=== PATIENT | male | born 1960 | race Caucasian/White ===

== ENCOUNTER 2020-05-08 11:37 | Inpatient (IN) | payer BC ==
[2020-05-08] MEDS ORDERED: ASPIRIN 81 MG PO STA (11:55)
[2020-05-08] MEDS ORDERED: LIDOCAINE 1% INJ 10MG/ML (20 ML MDV) ONE (12:09)
[2020-05-08] MEDS ORDERED: HEPARIN SODIUM,PORCINE 5,000 UNIT/ML 1 ML VIAL IV ONE (12:09)
[2020-05-08] MEDS ORDERED: HEPARIN SODIUM,PORCINE 5,000 UNIT/ML 1 ML VIAL IV PRN (12:09)
--- NOTE | 2020-05-08 12:09 | XR ---
EXAMINATION TYPE: XR chest 1V portable DATE OF EXAM: 05/08/2020 COMPARISON: NONE HISTORY: Pain TECHNIQUE: Single frontal view of the chest is obtained. FINDINGS: There is no focal air space opacity, pleural effusion, or pneumothorax seen. The cardiac silhouette size is within normal limits. The osseous structures are intact. Arthropathy of the AC j oints. No overt failure. Heart size normal. IMPRESSION: No acute process.
[2020-05-08] MEDS ORDERED: NALOXONE 0.4 MG/ML 1 ML VIAL IV PRN (12:10)
--- NOTE | 2020-05-08 12:10 | ED ---
General Adult HPI - General Chief complaint: Chest Pain Stated complaint: abn ekg Time Seen by Provider: 05/08/20 11:54 Source: patient Mode of arrival: ambulatory Limitations: no limitations - History of Present Illness Initial comments: Dictation was produced using [employer] ([email or web address]) dictation software. please excuse any grammatical, word or spelling errors. This patient was cared for during a federal and state declared state of emergency secondary to Covid 19 Chief Complaint: 59-year-old male presents with chest pain History of Present Illness: 59-year-old male has been presenting with waxing and waning chest symptoms for the last 4 days. Patient states that he's been expressing pressure-like cessation to substernal chest with radiation patient down both of his upper extremities. Patient denies any diaphoresis however does feel nauseated clammy with the onset of the symptoms. Denies any numb single paresthesias to the arms or legs. States that the pain does not radiate to his back. He denies any strokelike symptoms. He denies that the pain feels a sharp pain that radiates to his back. Patient has past nuchal history of tobacco abuse, hypertension high cholesterol. He has no history of diabetes. He does have family history of cardiac disease. The ROS documented in this emergency department record has been reviewed and confirmed by me. Those systems with pertinent positive or negative responses have been documented in the HPI. All other systems are other negative and/or noncontributory. PHYSICAL EXAM: General Impression: Alert and oriented x3, not in acute distress HEENT: Normocephalic atraumatic, extra-ocular movements intact, pupils equal and reactive to light bilaterally, mucous membranes moist. Cardiovascular: Heart regular rate and rhythm Chest: Able to complete full sentences, no retractions, no tachypnea Abdomen: abdomen soft, non-tender, non-distended, no organomegaly Musculoskeletal: Pulses present and equal in all extremities, no peripheral edema Motor: no focal deficits noted Neurological: CN II-XII grossly intact, no focal motor or sensory deficits noted Skin: Intact with no visualized rashes Psych: Normal affect and mood ED course: 59-year-old male presents with chest pain concerning for acute coronary syndrome. As upon arrival shows heart rate of 112, rest of vital signs within acceptable limits. EKG shows inferior lateral ST segment elevation myocardial infarction with reciprocal changes in the anterior precordial leads. Code STEMI was paged. Case is discussed with Dr. Fernandes. Patient started on heparin and given aspirin. Patient will be disposition to the cardiac catheterization lab for emergent cardiac cath. EKG interpretation: Ventricular rate 91, normal sinus rhythm,. 150, QRS 76, QTC 457. ST segment elevation in inferior and lateral leads with Q waves and ST depressions in V1 and V2.. No ME prolongation, no QTC prolongation. EKG concerning for ST segment elevation IA. - Related Data Allergies Allergy/AdvReac Type Severity Reaction Status Date / Time No Known Allergies Allergy Verified 05/08/20 11:46 Review of Systems ROS Statement: Those systems with pertinent positive or pertinent negative responses have been documented in the HPI. ROS Other: All systems not noted in ROS Statement are negative. Past Medical History Past Medical History: Hyperlipidemia, Hypertension History of Any Multi-Drug Resistant Organisms: None Reported Past Surgical History: Orthopedic Surgery Additional Past Surgical History / Comment(s): sinus surgery Past Psychological History: No Psychological Hx Reported Smoking Status: Current every day smoker Past Alcohol Use History: Occasional Past Drug Use History: Marijuana General Exam Limitations: no limitations Course Vital Signs 05/08/20 05/08/20 05/08/20 11:43 12:02 12:08 Temperature 98.1 F Pulse Rate 90 112 H 110 H Respiratory 18 18 18 Rate Blood Pressure 193/75 186/124 167/111 O2 Sat by Pulse 97 96 96 Oximetry Disposition Clinical Impression: STEMI (ST elevation myocardial infarction) Disposition: ADMITTED IP TO THIS HOSP Condition: Critical Referrals: Aissatou Malagon DO [Primary Care Provider] - 1-2 days Decision Time: 12:10
[2020-05-08] MEDS ORDERED: VERAPAMIL 2.5 MG/ML 2 ML AMP ONE (12:14)
[2020-05-08] MEDS: HEPARIN SOD,PORK IN 0.45% NACL 25,000 UNIT in 0.45% NACL 1 250ML.BAG IV SCH (12:15)
[2020-05-08] MEDS ORDERED: IV FLUID CONTINUATION 1,000 ML IV ONE (12:20)
[2020-05-08 12:21] LABS: Basophils % (A) 0 %; Eosinophils # (A) 0.1 k/uL (0-0.7); Eosinophils % (A) 1 %; HGB 18.9 gm/dL (13.0-17.5); Lymphocytes # (A) 2.6 k/uL (1.0-4.8); Lymphocytes % (A) 22 %; MCH 32.4 pg (25.0-35.0); MCHC 32.9 g/dL (31.0-37.0); MCV 98.4 fL (80.0-100.0); Mean Platelet Volume 6.6; Monocytes # (A) 0.8 k/uL (0-1.0); Monocytes % (A) 7 %; Neutrophils # (A) 7.9 k/uL (1.3-7.7); Neutrophils % (A) 68 %; Platelet Count 222 k/uL (150-450); RBC 5.84 m/uL (4.30-5.90); RDW 13.2 % (11.5-15.5); WBC 11.6 k/uL (3.8-10.6)
[2020-05-08] MEDS ORDERED: MIDAZOLAM 2 MG/2 ML VIAL IV ONE (12:23)
[2020-05-08] MEDS ORDERED: fentaNYL (PF) 50 MCG/ML 2 ML AMP IV ONE (12:25)
[2020-05-08 12:28] LABS: ALT 41 U/L (4-49); AST 196 U/L (17-59); African American GFR (CKD) >90 (>60 ml/min/1.73 sqM); Alkaline Phosphatase 101 U/L (38-126); Anion Gap 8 mmol/L; Blood Urea Nitrogen 9 mg/dL (9-20); Calcium 11.2 mg/dL (8.4-10.2); Carbon Dioxide 32 mmol/L (22-30); Chloride 96 mmol/L (98-107); Glucose 147 mg/dL (74-99); Magnesium 1.7 mg/dL (1.6-2.3); Non-African American GFR(CKD) >90 (>60 ml/min/1.73 sqM); Potassium 4.2 mmol/L (3.5-5.1); Sodium 136 mmol/L (137-145); Total Bilirubin 1.2 mg/dL (0.2-1.3); Total Protein 8.1 g/dL (6.3-8.2)
[2020-05-08] MEDS ORDERED: fentaNYL (PF) 50 MCG/ML 2 ML AMP ONE (12:29)
[2020-05-08] MEDS ORDERED: LIDOCAINE 1% INJ 10MG/ML (20 ML MDV) SQ ONE (12:30)
[2020-05-08 12:33] LABS: HCT 57.5 % (39.0-53.0)
[2020-05-08] MEDS ORDERED: VERAPAMIL SYRINGE (5 MG/10 ML) INTRAARTER ONE (12:33)
[2020-05-08] MEDS ORDERED: HEPARIN SODIUM 1,000 UN/ML (10ML VL) ONE (12:33)
[2020-05-08] MEDS ORDERED: TICAGRELOR 90 MG TAB PO ONE (12:45)
[2020-05-08] MEDS ORDERED: TICAGRELOR 90 MG TAB ONE (12:45)
[2020-05-08] MEDS ORDERED: IOPAMIDOL-370 125ML BTL INJ ONE (12:48)
[2020-05-08] MEDS: NITROGLYCERIN 1000MCG/10ML SYRINGE INTRAARTER ONE ×2 (12:49→12:58)
[2020-05-08] MEDS ORDERED: IOPAMIDOL-370 100ML BTL INJ ONE (13:04)
[2020-05-08] MEDS ORDERED: MAG HYDROX/AL HYDROX/SIMETH 30 ML CUP PO PRN (13:28)
[2020-05-08] MEDS ORDERED: ZOLPIDEM 5 MG TAB PO PRN (13:28)
[2020-05-08] MEDS ORDERED: ATROPINE SULFATE 0.1 MG/ML 10ML SYRINGE IV PRN (13:28)
[2020-05-08] MEDS ORDERED: RX INFO: IV CONTRAST WAS GIVEN 1 EACH MISC MISCELLANE PRN (13:28)
[2020-05-08] MEDS ORDERED: NITROGLYCERIN SL TABS 0.4 MG TAB SUBLINGUAL PRN (13:28)
--- NOTE | 2020-05-08 13:28 | P.CRDCN ---
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 He admits to ep igastric pain which felt like gas pains and off and on over the last 4 days. He denies any associated nausea, diaphoresis or shortness breath. The pain then became fairly constant over the last night and then his finally made him come to the emergency department. He was found to have Q waves with some ST elevation in the inferior and lateral leads with persistent pain and therefore decision was made to take patient to catheterization lab. His admits that he has been having issues of not feeling well over the past one month and was even scheduled for a stress test next week at his primary care physician's office. DIAGNOSTICS EKG reveals sinus rhythm, normal axis, Q-wave in 2-3 aVF, V5 V6 with 1-1.[address] elevation. Chest xray no acute process Laboratory reviewed, white count 11.6, hemoglobin 18.9, platelets 222, creatinine 0.78, glucose 147, calcium 11.2, AST 196, troponin 21.1 Home medications include simvastatin 20 mg daily and lisinopril 40 mg daily REVIEW OF SYSTEMS At the time of my exam: CONSTITUTIONAL: Denies fever or chills. CARDIOVASCULAR: +chest/ "gas" pain radiating into both arms, no shortness of breath, orthopnea, PND or palpitations. RESPIRATORY: Denies cough. GASTROINTESTINAL: +abdominal pain, no diarrhea, constipation, nausea or vomiting. MUSCULOSKELETAL: Denies myalgias. NEUROLOGIC: Denies numbness, tingling or weakness. ENDOCRINE: Denies fatigue, weight change, polydipsia or polyurina. GENITOURINARY: Denies burning, hematuria or urgency with micturation. HEMATOLOGIC: Denies history of anemia or bleeding. PHYSICAL EXAMINATION Blood pressure 178/100 heart rate 91 afebrile and maintaining oxygen saturation on 2 L nasal cannula CONSTITUTIONAL: Mild distress, appears stated age HEENT: Head is normocephalic. Pupils are equal, round. Sclerae anicteric. Mucous membranes of the mouth are moist. No JVD. No carotid bruit. CHEST EXAMINATION: Lungs are clear to auscultation. No chest wall tenderness is noted on palpation or with deep breathing. HEART EXAMINATION: Regular rate and rhythm. S1, S2 heard. No murmurs, gallops or rub. ABDOMEN: Soft, nontender. Positive bowel sounds. EXTREMITIES: 2+ peripheral pulses, no lower extremity edema and no calf tenderness. NEUROLOGIC EXAMINATION: Patient is awake, alert and oriented x3. ASSESSMENT 1. Inferior lateral STEMI. Patient has been having pain over the last 4 days and does have Q waves on EKG however does have mild persistent pain and therefore we will proceed to emergent catheterization. 2. Tobacco abuse 3. Hypertension currently elevated on home lisinopril 4. Hyperlipidemia on home Zocor 20 mg daily 5. Elevated glucose, rule out diabetes mellitus 6. Increased hemoglobin, rule out polycythemia versus other PLAN patient does have Q waves however does have mild persistent pain and therefore we will take patient emergently to catheterization lab. Tobacco cessation. Check hemoglobin A1c for elevated glucose. Further recommendations to follow. Past Medical History Past Medical History: Hyperlipidemia, Hypertension History of Any Multi-Drug Resistant Organisms: None Reported Past Surgical History: Orthopedic Surgery Additional Past Surgical History / Comment(s): sinus surgery Past Psychological History: No Psychological Hx Reported Smoking Status: Current every day smoker Past Alcohol Use History: Occasional Past Drug Use History: Marijuana Medications and Allergies Home Medications Medication Instructions Recorded Confirmed Type Simvastatin [Zocor] 20 mg PO HS 05/08/20 05/08/20 History lisinopriL 40 mg PO DAILY 05/08/20 05/08/20 History Allergies Allergy/AdvReac Type Severity Reaction Status Date / Time No Known Allergies Allergy Verified 05/08/20 12:39 Physical Exam Vitals: Vital Signs Temp Pulse Resp BP Pulse Ox 05/08/20 12:08 110 H 18 167/111 96 05/08/20 12:02 112 H 18 186/124 96 05/08/20 11:43 98.1 F 90 18 193/75 97 Intake and Output 05/07/20 05/08/20 05/08/20 22:59 06:59 14:59 Intake Total 100 Balance 100 Intake: IV 100 Other: Weight 83.915 kg Results 05/08/20 12:00 05/08/20 12:00 Cardiac Enzymes 10/17/20 10/17/20 Range/Units 12:00 12:00 AST 196 H (17-59) U/L Troponin I 21.100 H* (0.000-0.034) ng/mL CBC 05/08/20 Range/Units 12:00 WBC 11.6 H (3.8-10.6) k/uL RBC 5.84 (4.30-5.90) m/uL Hgb 18.9 H (13.0-17.5) gm/dL Hct 57.5 H* (39.0-53.0) % Plt Count 222 (150-450) k/uL Comprehensive Metabolic Panel 05/08/20 Range/Units 12:00 Sodium 136 L (137-145) mmol/L Potassium 4.2 (3.5-5.1) mmol/L Chloride 96 L (98-107) mmol/L Carbon Dioxide 32 H (22-30) mmol/L BUN 9 (9-20) mg/dL Creatinine 0.78 (0.66-1.25) mg/dL Glucose 147 H (74-99) mg/dL Calcium 11.2 H (8.4-10.2) mg/dL AST 196 H (17-59) U/L ALT 41 (4-49) U/L Alkaline Phosphatase 101 (38-126) U/L Total Protein 8.1 (6.3-8.2) g/dL Albumin 5.0 (3.5-5.0) g/dL Current Medications Generic Name Dose Route Start Last Admin Trade Name Freq PRN Reason Stop Dose Admin Heparin Sodium (Porcine) 0 unit 05/08/20 12:09 Heparin Sodium,Porcine 5,000 Unit/Ml 1 Ml Vial IV PER PROTOCOL PRN Low PTT Protocol Heparin Sodium/Sodium Chloride 250 mls @ 10 mls/hr 05/08/20 12:15 05/08/20 12:15 25,000 unit/ Sodium Chloride IV 11.917 units/kg/hr .Q24H MARCELLA 10 mls/hr Administration Protocol 11.917 UNITS/KG/HR Naloxone HCl 0.2 mg 05/08/20 12:10 Naloxone 0.4 Mg/Ml 1 Ml Vial IV Q2M PRN Opioid Reversal Intake and Output 05/07/20 05/08/20 05/08/20 22:59 06:59 14:59 Intake Total 100 Balance 100 Intake: IV 100 Other: Weight 83.915 kg Patient Weight 05/09/20 06:59 Weight 83.915 kg 05/08/20 12:00 05/08/20 12:00
[2020-05-08 13:37] LABS: Glucose,Whole Blood 124 mg/dL (75-99)
--- NOTE | 2020-05-08 13:40 | P.PRCINT ---
Percutaneous Coronary Int. - Percutaneous Coronary Intervention Percutaneous Coronary Intervention: PROCEDURES PERFORMED: Bilateral coronary angiography, successful PCI of mid OM 2 with a 2.25 x 18 mm Xience SCOTTY. INDICATION: Inferior lateral STEMI HISTORY: Patient is a pleasant 59-year-old male who has been having off-and-on epigastric "gas" pain over last 4 days and fairly consistent over the last night. He presented to the emergency department was found to have inferior and lateral Q waves with ST elevation however was still having some pain and therefore decision was made to take patient emergently to the catheterization lab. PROCEDURE: After the risks, benefits and alternatives of the above mentioned procedure explained in detail with the patient, informed consent was obtained. 2% lidocaine was used to anesthetize the right radial area. A 6-Greenlandic sheath was placed in the right radial artery using modified Seldinger technique. Diagnostic angiography was performed of the right and left coronary arteries using a5 Fr FR 5 and FL 3.5 catheter in various views. The decision was made to intervene on the OM 2. A 6Fr CLS 3.5 guide catheter was used to engage the left main. A 0.014 BMW wire was advanced into the distal vessel without difficulty. The lesion was predilated with a 2.0 x 12 mm balloon. Next, a 2.25 x 18 mm Xience SCOTTY was deployed. The stent was then post dilated with a 2.5 mm NC balloon in the proximal and mid section. Preintervention there was a 99 % stenosis and JAN 2 flow and post intervention there was 0 % residual stenosis and JAN 3 flow without evidence of dissection. There was 30% stenosis at the origin of the OM2 unchanged by intervention and felt best treated medically. The wire was removed and final angiograms were taken. The right radial sheath was removed and a TR band was placed with hemostasis achieved. The patient tolerated the procedure well. Patient was transported back to the post catheterization holding area in stable condition. Conscious Sedation: Patient was monitored under the direct supervision of vision of myself for conscious sedation using Versed and fentanyl for a total duration of 40 minutes HEMODYNAMICS: Aorta: 178/110 SELECTIVE CORONARY ARTERIOGRAPHY: LEFT MAIN: The left main is a large caliber vessel which bifurcates into the LAD and circumflex. There is no significant stenosis. LEFT ANTERIOR DESCENDING CORONARY ARTERY: LAD is a large caliber vessel which wraps around to the apex. There is proximal LAD 40% stenosis. The mid and distal LAD had mild luminal irregularities. There is bridging of the mid LAD. LEFT CIRCUMFLEX CORONARY ARTERY: Left circumflex is a moderate caliber vessel with proximal mild luminal irregularities. OM1 is a small caliber vessel without significant stenosis. OM2 has a ostial 30% stenosis and then a long 99% mid OM 2 stenosis with JAN 2 flow. RIGHT CORONARY ARTERY: The right coronary artery is a moderate caliber vessel which gives off a PDA and PLV branch and is the dominant vessel. There is a proximal 30% RCA stenosis followed by a mid RCA 40-50% stenosis and otherwise mild luminal irregularities. FINAL IMPRESSION: 1. Coronary artery disease as above with mild to moderate disease of the left and right system and obstructive 99% stenosis of OM 2 2. Successful PCI of culprit mid OM 2 with a 2.25 x 18 mm Xience SCOTTY. 3. Late presenting inferior lateral STEMI PLAN: 1. Aggressive risk factor modification per most recent ACC/AHA guidelines. 2. Tobacco cessation 3. Continue dual antiplatelets for 12 months.
[2020-05-08] MEDS: carvediloL 12.5 MG TAB PO SCH ×2 (13:49→17:20)
[2020-05-08] MEDS ORDERED: amLODIPine 5 MG TAB PO STA (14:22)
[2020-05-08 14:42] VITALS: BMI 26.5
[2020-05-08] MEDS ORDERED: CLEVIDIPINE BUTYRATE 25 MG in EMPTY BAG 1 BAG IV SCH (15:00)
[2020-05-08] MEDS ORDERED: ALPRAZolam 0.25 MG TAB PO PRN (17:24)
[2020-05-08] MEDS ORDERED: HYDROcodone/APAP 5-325MG 1 EACH TAB PO PRN (17:26)
[2020-05-08] MEDS ORDERED: TEMAZEPAM 15 MG CAP PO PRN (17:26)
[2020-05-08] MEDS: NICOTINE 14MG/24HR PATCH TRANSDERM SCH (18:45)
--- NOTE | 2020-05-08 20:14 | HP ---
HISTORY AND PHYSICAL CHIEF COMPLAINT: Chest pain. HISTORY OF PRESENT ILLNESS: This 59-year-old gentleman with a past medical history of multiple medical problems including history of hypertension, hyperlipidemia, myocardial infarction, rheumatoid arthritis, sleep apnea, being followed by Dr. Aissatou Malagon in the outpatient is complaining of chest discomfort for the past 3 or 4 days. The patient thought it was most like heartburn induced by eating and it used to go away, but then today the pain was significant. It was substernal with some radiation of the pain down the upper extremities and patient came to [facility], admitted for evaluation and treatment. There is no history any diaphoresis, but patient felt nauseous and clammy and in the ER the initial EKG showed acute [id number] myocardial infarction, inferolateral. The patient underwent cardiac catheterization by Dr. Gonzales. The patient was found to have mild to moderate disease of the left and right system and obstructive lesion 99% of the OM2. Patient underwent successful stenting. The patient is being closely monitored at this time in ICU. The patient had some high blood pressure. The patient is on Cleviprex at this time. Patient also was smoking previously. There is no history of fever, rigors. No headache, loss of consciousness, seizures at this time. PAST MEDICAL HISTORY: History of hypertension, hyperlipidemia, myocardial infarction, rheumatoid arthritis, sleep apnea, history of adenoidectomy. MEDICATIONS: Home medications prior to admission, lisinopril, Zocor, fish oil 1 p.o. daily. ALLERGIES: None. FAMILY HISTORY: History of cancer, hypertension, rheumatoid arthritis. SOCIAL HISTORY: History of occasional alcohol, THC, history of smoking. REVIEW OF SYSTEMS: ENT No history of diminished hearing or vision. CARDIOVASCULAR As mentioned earlier. RESPIRATORY As mentioned earlier. GI No nausea, vomiting, or diarrhea. No dysuria or hematuria. NERVOUS No numbness or weakness. ALLERGY/IMMUNOLOGY No asthma or hayfever. MUSCULOSKELETAL As mentioned earlier. HEMATOLOGY/ONCOLOGY Negative. ENDOCRINE No history of diabetes or hypothyroidism. CONSTITUTIONAL As mentioned earlier. DERMATOLOGY Negative. RHEUMATOLOGY As mentioned earlier, PSYCHIATRY As mentioned earlier. PHYSICAL EXAMINATION: Alert and oriented x3. Pulse 89, blood pressure 121/92, respiration 15, temperature 98.9, pulse ox 93% on room air HEENT: Conjunctivae normal. Oral mucosa moist. NECK: No jugular venous distention. No lymph node enlargement. CARDIOVASCULAR: S1, S2, muffled. No S3, no S4, RESPIRATORY: Diminished breath sounds at the bases. No rhonchi, no crackles. ABDOMEN: Soft, nontender. No mass palpable. LEGS: No edema, no swelling. NERVOUS SYSTEM: Higher functions mentioned earlier. Moves all four limbs. No focal motor or sensory deficits. LYMPHATICS: No lymph node in neck or axilla. SKIN: No rash. JOINTS: No active deforming arthropathy. LABS: WBC 11.6 and hemoglobin is 18.9. Sodium is 136 and glucose 147. Calcium is 11.2. Troponin 21.100. ASSESSMENT: 1. Acute ST-segment elevation myocardial infarction, inferolateral, status post cardiac catheterization and stenting of the OM2. 2. Hypertensive urgency. 3. Hyponatremia. 4. Hypercalcemia. 5. Troponin elevated up to 21.1. 6. Mild polycythemia. 7. Increased WBC, possibly reactive. 8. Hypertension. 9. Hyperlipidemia. 10.Myocardial infarction. 11.History rheumatoid arthritis. 12.History of sleep apnea. 13.History of adenoidectomy. 14.History of degenerative joint disease. 15.FULL CODE. RECOMMENDATIONS AND DISCUSSION: In this 59-year-old gentleman who presented with multiple complex medical issues, I would recommend continue the current management and continue symptomatic treatment. Otherwise, continue with dual antiplatelet treatment per Cardiology. Monitor blood pressure closely, Cleviprex. Repeat labs. Habitrol 14. Smoking cessation advised and recommend close followup with Dr. Malagon in the outpatient setting, Dr. Federico Malagon will follow the patient on Sunday. Closely follow with Cardiology. MMODL / IJN: [id number] /
[2020-05-08] MEDS: TICAGRELOR 90 MG TAB PO SCH (20:52)
[2020-05-08] MEDS: ATORVASTATIN 80 MG TAB PO SCH (20:52)
[2020-05-09 03:10] LABS: Basophils % (A) 0 %; Eosinophils # (A) 0.1 k/uL (0-0.7); Eosinophils % (A) 1 %; HCT 51.8 % (39.0-53.0); HGB 16.6 gm/dL (13.0-17.5); Lymphocytes # (A) 2.7 k/uL (1.0-4.8); Lymphocytes % (A) 24 %; MCH 31.9 pg (25.0-35.0); MCHC 32.1 g/dL (31.0-37.0); MCV 99.6 fL (80.0-100.0); Mean Platelet Volume 6.6; Monocytes % (A) 9 %; Neutrophils # (A) 7.2 k/uL (1.3-7.7); Neutrophils % (A) 64 %; Platelet Count 203 k/uL (150-450); RBC 5.21 m/uL (4.30-5.90); RDW 13.4 % (11.5-15.5); WBC 11.4 k/uL (3.8-10.6)
[2020-05-09 03:43] LABS: African American GFR (CKD) >90 (>60 ml/min/1.73 sqM); Anion Gap 6 mmol/L; Blood Urea Nitrogen 12 mg/dL (9-20); Calcium 9.6 mg/dL (8.4-10.2); Carbon Dioxide 27 mmol/L (22-30); Chloride 100 mmol/L (98-107); Glucose 135 mg/dL (74-99); Non-African American GFR(CKD) >90 (>60 ml/min/1.73 sqM); Potassium 4.5 mmol/L (3.5-5.1); Sodium 133 mmol/L (137-145)
[2020-05-09 08:30] LABS: Cholesterol 141 mg/dL (<200); HDL Cholesterol 37 mg/dL (40-60); LDL Cholesterol,Calculated 78 mg/dL (0-99); Triglycerides 129 mg/dL (<150)
[2020-05-09] MEDS: PANTOPRAZOLE 40 MG TABLET PO SCH (08:37)
[2020-05-09] MEDS: carvediloL 12.5 MG TAB PO SCH (08:38)
[2020-05-09] MEDS ORDERED: amLODIPine 5 MG TAB PO SCH (09:00)
[2020-05-09] MEDS ORDERED: lisinopriL 20 MG TAB PO SCH (09:00)
[2020-05-09] MEDS: NICOTINE 14MG/24HR PATCH TRANSDERM SCH (09:29)
[2020-05-09] MEDS: TICAGRELOR 90 MG TAB PO SCH ×2 (09:29→20:00)
[2020-05-09] MEDS: ASPIRIN 81 MG PO SCH (09:29)
--- NOTE | 2020-05-09 12:50 | P.PN ---
Subjective Progress Note Date: 05/09/20 This is a 59-year-old gentleman was admitted with evidence of inferior wall ID. Had a cardiac catheterization by Dr. Gonzales and intervention for the OM branch of circumflex. Patient had issues with high blood pressure, Yesterday. Today's blood pressure is low. He was on Coreg 12.5 mg by mouth twice a day. We will cut back the dose to 6.25 mg by mouth twice a day. Will cut back the lisinopril to 2.5 mg. Patient is on: Antiplatelet agents Denies any chest pain, shortness of breath. Rhythm seemed to be sinus Lungs are clear. Heart is regular. Patient's angina site symptom be healing well with mild ecchymosis. Radial pulses intact. Patient is being transferred to telemetry unit and inc rease activity as tolerated. Echocardiogram to be done Objective - Vital Signs Vital signs: Vital Signs Temp 97.8 F 05/09/20 08:00 Pulse 73 05/09/20 11:00 Resp 19 05/09/20 11:00 BP 90/62 05/09/20 11:00 Pulse Ox 93 L 05/09/20 11:00 Intake & Output 05/08/20 05/09/20 05/09/20 18:59 06:59 18:59 Intake Total 886.376 8741 400 Output Total 1150 740 500 Balance -646.500 415 -100 Weight 83.915 kg 87.9 kg Intake: IV 100 Intake, IV Titration 403.500 75 Amount Clevidipine Butyrate 25 28.500 mg In Empty Bag 1 bag @ 1 MG/HR 2 mls/hr IV .Q24H [facility] Rx#:[id number] IV Fluid Continuation 1, 375 75 000 ml @ 0 mls/hr IV .STK -MED ONE Rx#:[id number] Oral 1080 400 Output: Urine 1150 740 500 Other: Voiding Method Urinal Urinal Urinal # Voids 1 0 # Bowel Movements 1 - Exam GENERAL EXAM: Patient is alert and oriented and doesn't appear to be in any acute distress HEENT: Normocephalic. Normal reaction of pupils, equal size, normal range of extraocular motion. No erythema or exudates in the throat. NECK: No masses, no nuchal rigidity. CHEST: No chest wall deformity. LUNGS: Equal air entry with no crackles or wheeze. HEART: S1 and S2 normal with no audible mumurs or gallops. Regular rhythm, femorals equal on both sides.. ABDOMEN: No hepatosplenomegaly, normal bowel sounds, no guarding or rigidity. SKIN: No rashes CENTRAL NERVOUS SYSTEM: No focal deficits. EXTREMITIES: No cyanosis, clubbing or edema. Puncture site: The right radial puncture site seemed to be healing well. Mild ecchymosis. Pulses preserved - Labs CBC & Chem 7: 05/09/20 02:45 05/09/20 02:45 Labs: Abnormal Lab Results - Last 24 Hours (Table) 05/08/20 05/08/20 05/09/20 Range/Units 12:00 13:34 02:45 WBC (3.8-10.6) k/uL Sodium 133 L (137-145) mmol/L Glucose 135 H (74-99) mg/dL POC Glucose (mg/dL) 124 H (75-99) mg/dL Troponin I 21.100 H* (0.000-0.034) ng/mL HDL Cholesterol (40-60) mg/dL 05/09/20 05/09/20 Range/Units 02:45 02:45 WBC 11.4 H (3.8-10.6) k/uL Sodium (137-145) mmol/L Glucose (74-99) mg/dL POC Glucose (mg/dL) (75-99) mg/dL Troponin I (0.000-0.034) ng/mL HDL Cholesterol 37 L (40-60) mg/dL Assessment and Plan (1) Essential hypertension Current Visit: Yes Status: Acute Code(s): I10 - ESSENTIAL (PRIMARY) HYPERTENSION SNOMED Code(s): 14101662 (2) STEMI (ST elevation myocardial infarction) Current Visit: Yes Status: Acute Code(s): I21.3 - ST ELEVATION (STEMI) MYOCARDIAL INFARCTION OF [facility] SITE SNOMED Code(s): 18317445 (3) Hypercholesterolemia Current Visit: Yes Status: Acute Code(s): E78.00 - PURE HYPERCHOLESTEROLEMIA, UNSPECIFIED SNOMED Code(s): 28640193 (4) Smoking Current Visit: Yes Status: Acute Code(s): F17.200 - NICOTINE DEPENDENCE, UNSPECIFIED, UNCOMPLICATED SNOMED Code(s): 59319723 Plan: continue current medical therapy except cutting back on the dose of the Coreg and also lisinopril. Increase activity. Transfer to telemetry. Echocardiogram
[2020-05-09] MEDS: HEPARIN SOD,PORK IN 0.45% NACL 25,000 UNIT in 0.45% NACL 1 250ML.BAG IV SCH (15:30)
--- NOTE | 2020-05-09 15:45 | PN ---
PROGRESS NOTE DATE OF SERVICE: 05/09/2020 This 59-year-old gentleman who was admitted with features of acute ST-segment elevation myocardial infarction had cardiac catheterization and stenting of the OM2. The patient being closely monitored. No chest pain. No palpitations. No fever. The patient had mild hypotension which is being monitored. Medications adjusted at this time. There is no history of fever, rigors or chills. Past medical history reviewed. PHYSICAL EXAM: Patient is alert, oriented. Pulse is 82. Blood pressure 88/60, respiration 17, temperature normal, pulse ox 93% on 2 L. HEENT: Conjunctivae normal. NECK: No JVD. CARDIOVASCULAR: S1, S2 muffled. RESPIRATION: Breath sounds diminished in the bases. No rhonchi. No crackles. ABDOMEN: Soft, nontender. LEGS are no edema, no swelling. NERVOUS SYSTEM: No focal deficits. LABS: WBC 11.3, hemoglobin 16.6, sodium 133 and AST is 37. Other labs are noted. ASSESSMENT: 1. Acute ST-segment elevation myocardial infarction, inferolateral status post cardiac catheterization and stenting of OM2. 2. Hypertensive urgency improved. 3. Hyponatremia. 4. Hypercalcemia. 5. Troponin elevated up to 21.1. 6. Mild polycythemia. 7. Increased WBC possibly reactive. 8. Hypertension. 9. Hyperlipidemia. 10.Myocardial infarction. 11.History of rheumatoid arthritis. 12.History of sleep apnea. 13.History of adenoidectomy. 14.History of degenerative joint disease. 15.FULL CODE. RECOMMENDATIONS AND DISCUSSION: Recommend to continue current management and symptomatic treatment. Continue the antiplatelet agents. Adjust medications. Monitor blood pressure closely. The patient is currently on lisinopril 2.5 mg daily and Coreg 6.25 mg b.i.d. We will continue to monitor closely with Cardiology and Dr. Malagon will follow tomorrow. Stable. Overall prognosis is guarded. Smoking cessation recommended. MMODL / IJN: [id number] /
[2020-05-09] MEDS: NICOTINE 21MG/24HR PATCH TRANSDERM SCH (17:28)
[2020-05-09] MEDS: carvediloL 6.25 MG TAB PO SCH (17:28)
[2020-05-09 19:57] VITALS: RESP 16
[2020-05-09] MEDS: ATORVASTATIN 80 MG TAB PO SCH (20:00)
[2020-05-10] MEDS: carvediloL 6.25 MG TAB PO SCH (06:33)
[2020-05-10] MEDS: PANTOPRAZOLE 40 MG TABLET PO SCH (06:33)
[2020-05-10] MEDS ORDERED: carvediloL 6.25 MG TAB ONE (07:30)
[2020-05-10] MEDS ORDERED: PANTOPRAZOLE 40 MG TABLET PO ONE (07:30)
[2020-05-10 08:02] LABS: Basophils % (A) 0 %; Eosinophils # (A) 0.1 k/uL (0-0.7); Eosinophils % (A) 1 %; HCT 50.1 % (39.0-53.0); HGB 16.3 gm/dL (13.0-17.5); Lymphocytes # (A) 3.2 k/uL (1.0-4.8); Lymphocytes % (A) 34 %; MCH 31.8 pg (25.0-35.0); MCHC 32.4 g/dL (31.0-37.0); MCV 98.2 fL (80.0-100.0); Mean Platelet Volume 6.7; Monocytes # (A) 0.8 k/uL (0-1.0); Monocytes % (A) 8 %; Neutrophils # (A) 5.2 k/uL (1.3-7.7); Neutrophils % (A) 54 %; Platelet Count 247 k/uL (150-450); RBC 5.11 m/uL (4.30-5.90); WBC 9.6 k/uL (3.8-10.6)
[2020-05-10 08:09] LABS: African American GFR (CKD) >90 (>60 ml/min/1.73 sqM); Anion Gap 5 mmol/L; Blood Urea Nitrogen 17 mg/dL (9-20); Calcium 9.4 mg/dL (8.4-10.2); Carbon Dioxide 30 mmol/L (22-30); Chloride 100 mmol/L (98-107); Glucose 132 mg/dL (74-99); Non-African American GFR(CKD) >90 (>60 ml/min/1.73 sqM); Sodium 135 mmol/L (137-145)
[2020-05-10] MEDS ORDERED: INFLUENZA VACCINE (6 MOS+) 60 MCG/0.5 ML SYRINGE IM ONE (09:00)
[2020-05-10 09:19] VITALS: TEMP 98.4
[2020-05-10] MEDS: NICOTINE 21MG/24HR PATCH TRANSDERM SCH (09:19)
[2020-05-10] MEDS: ASPIRIN 81 MG PO SCH (09:20)
[2020-05-10] MEDS: TICAGRELOR 90 MG TAB PO SCH (09:20)
[2020-05-10 11:35] VITALS: BP 106/64; PULSE 73
--- NOTE | 2020-05-10 12:03 | P.PN ---
Subjective This is a pleasant 59-year-old male who presented to the hospital with inferior wall myocardial infarction. He underwent successful PCI of the OM branch of the circumflex. He is seen and examined sitting up in the chair in no acute distress. He denies symptoms of chest pain, shortness of breath or palpitations. He states at times he does feel a little bit lightheaded when he is up and moving around. His antihypertensive regimen was adjusted yesterday. Currently maintained on Coreg 6.25 mg twice a day, aspirin 81 mg daily, atorv astatin 80 mg daily, lisinopril 2.5 mg daily and brilinta 90 mg BID. Current blood pressure is 105/60 heart rate of 78 maintaining oxygen saturation on room air. Echocardiogram pending. GENERAL: Well-appearing, well-nourished and in no acute distress. NECK: Supple without JVD or thyromegaly. LUNGS: Breath sounds clear to auscultation bilaterally. Respiration equal and unlabored. No wheezes, rales or rhonchi. HEART: Regular rate and rhythm without murmurs, rubs or gallops. S1 and S2 heard. EXTREMITIES: Normal range of motion, no edema. No clubbing or cyanosis. Peripheral pulses intact. ASSESSMENT Acute inferior wall ST elevated myocardial infarction status post PCI Hypertension Dyslipidemia Chronic nicotine dependence Regular alcohol use PLAN Continue current medical regimen. Echo pending. Further recommendations to follow based on clinical course. Nurse Practitioner note has been reviewed, I agree with a documented findings and plan of care. Patient was seen and examined. Objective - Vital Signs Vital signs: Vital Signs Temp 98.4 F 05/10/20 08:00 Pulse 78 05/10/20 08:00 Resp 16 05/10/20 08:00 BP 105/60 05/10/20 08:00 Pulse Ox 95 05/10/20 08:00 Intake & Output 05/09/20 05/10/20 05/10/20 18:59 06:59 18:59 Intake Total 1040 240 Output Total 500 0 Balance 540 240 Weight 84.2 kg Intake: Oral 1040 240 Output: Urine 500 0 Other: Voiding Method Toilet Urinal # Voids 0 1 0 # Bowel Movements 1 - Labs CBC & Chem 7: 05/10/20 07:16 05/10/20 07:16 Labs: Abnormal Lab Results - Last 24 Hours (Table) 05/10/20 Range/Units 07:16 Sodium 135 L (137-145) mmol/L Glucose 132 H (74-99) mg/dL
--- NOTE | 2020-05-10 13:24 | ECHOF ---
Referral Reason:assess heart function MEASUREMENTS -------- HEIGHT: 177.8 cm WEIGHT: 87.5 kg BP: 118/67 RVIDd: 3.3 cm (< 3.3) IVSd: 1.3 cm (0.6 - 1.1) LVIDd: 3.3 cm (3.9 - 5.3) LVPWd: 1.4 cm (0.6 - 1.1) IVSs: 2.1 cm LVIDs: 2.2 cm LVPWs: 1.9 cm LA Diam: 3.8 cm (2.7 - 3.8) LAESV Index (A-L): 24.29 ml/m Ao Diam: 3.0 cm (2.0 - 3.7) AV Cusp: 2.1 cm (1.5 - 2.6) MV EXCURSION: 27.332 mm (> 18.000) MV EF SLOPE: 111 mm/s (70 - 150) EPSS: 0.6 cm MV E Fermin: 0.81 m/s MV DecT: 197 ms MV A Fermin: 0.74 m/s MV E/A Ratio: 1.10 RAP: 5.00 mmHg RVSP: 24.18 mmHg FINDINGS -------- Sinus rhythm. This was a technically difficult study with suboptimal parasternal views. The left ventricular size is normal. There is mild concentric left ventricular hypertrophy. Overa ll left ventricular systolic function is low-normal with, an EF between 50 - 55 %. There is basal t o mid inferolateral hypokinesis. The right ventricle is mildly enlarged. Normal LA size by volume 22+/-6 ml/m2. The right atrium is normal in size. Interatrial and interventricular septum intact. The aortic valve is trileaflet and appears structurally normal. The mitral valve is normal. Mild tricuspid regurgitation present. Right ventricular systolic pressure is normal at < 35 mmHg. There is no pulmonic regurgitation present. The aortic root size is normal. Normal inferior vena cava with normal inspiratory collapse consistent with estimated right atrial pre ssure of 5 mmHg. The inferior vena cava is mildly dilated. There is no pericardial effusion. CONCLUSIONS -------- 1. This was a technically difficult study with suboptimal parasternal views. 2. The left ventricular size is normal. 3. There is mild concentric left ventricular hypertrophy. 4. Overall left ventricular systolic function is low-normal with, an EF between 50 - 55 %. 5. There is basal to mid inferolateral hypokinesis. 6. The right ventricle is mildly enlarged. 7. Normal LA size by volume 22+/-6 ml/m2. 8. Mild tricuspid regurgitation present. 9. The inferior vena cava is mildly dilated. 10. There is no pericardial effusion. STATE TESTED NURSING ASSISTANT: Dominga Lopez RDCS
--- NOTE | 2020-05-11 15:30 | P.DS ---
Providers Date of admission: 05/08/20 12:10 Expected date of discharge: 05/10/20 Attending physician: Federico Malagon MD Consults: 05/08/20 12:10 Consult Physician Stat Consulting Provider: Briseida Fernandes Consult Reason/Comments: stemi Do you want consulting provider notified?: Already Contacted 05/08/20 13:29 Consult Physician Routine Consulting Provider: [facility] Consult Reason/Comments: Post Interventional patient Do you want consulting provider notified?: Already Contacted Primary care physician: Aissatou Malagon Hospital Course: Final Diagnoses: Acute STEMI, inferior lateral, status post PCI with stenting of OM2 Hypertensive urgency, improved Hyponatremia, improving Hypercalcemia, resolved Reactive leukocytosis Hypertension Hyperlipidemia Chronic nicotine dependence alcohol use on the weekends Marijuana use Hospital course: This a 59-year-old gentleman admitted with chest pain,, acute STEMI, hypertensive urgency and multiple other medical issues. Underwent cardiac catheterization with stenting of the OM 2, tolerated procedure well. His antihypertensive regimen was adjusted. Significant clinical improvement. Cleared by cardiology for discharge. Alcohol cessation reinforced. Patient is being discharged home in a stable condition with guarded prognosis. The impression and plan of care has been dictated as directed. Dr.: I performed a history and examination of this patient, discussed the same with the dictator. I agree with the dictator's note ,documented as a scribe. Any additional findings or plans will be noted. Patient Condition at Discharge: Stable Plan - Discharge Summary New Discharge Prescriptions: New Ticagrelor [Brilinta] 90 mg PO BID #60 tab Aspirin 81 mg PO DAILY #30 chew carvediloL [Coreg] 6.25 mg PO BID-W/MEALS #60 tab Atorvastatin [Lipitor] 80 mg PO HS #30 tab Nitroglycerin Sl Tabs [Nitrostat] 0.4 mg SUBLINGUAL Q5M PRN #100 tab PRN Reason: Chest Pain Pantoprazole [Protonix] 40 mg PO AC-BRKFST #30 tablet. lisinopriL [Zestril] 2.5 mg PO DAILY #30 tab Continue [place]-3 Fatty Acids/Fish Oil [Fish Oil 1,000 mg Softgel] 1 cap PO DAILY Discontinued lisinopriL 40 mg PO DAILY Simvastatin [Zocor] 20 mg PO HS Discharge Medication List [place]-3 Fatty Acids/Fish Oil [Fish Oil 1,000 mg Softgel] 1 cap PO DAILY 05/08/20 [History] Aspirin 81 mg PO DAILY #30 chew 05/10/20 [Rx] Atorvastatin [Lipitor] 80 mg PO HS #30 tab 05/10/20 [Rx] Nitroglycerin Sl Tabs [Nitrostat] 0.4 mg SUBLINGUAL Q5M PRN #100 tab 05/10/20 [Rx] Pantoprazole [Protonix] 40 mg PO AC-BRKFST #30 tablet.dr 05/10/20 [Rx] Ticagrelor [Brilinta] 90 mg PO BID #60 tab 05/10/20 [Rx] carvediloL [Coreg] 6.25 mg PO BID-W/MEALS #60 tab 05/10/20 [Rx] lisinopriL [Zestril] 2.5 mg PO DAILY #30 tab 05/10/20 [Rx] Follow up Appointment(s)/Referral(s): Federico Malagon MD [STAFF PHYSICIAN] - 05/14/20 11:30 am (Sunday) Vic Gonzales DO [STAFF PHYSICIAN] - 1 Week (Office will call you with appointment. ) Patient Instructions/Handouts: *Surgery [facility] - After Heart Catheterization - [employer] Instructions, Heart Attack (DC), Heart Healthy Diet (DC) Discharge Disposition: HOME SELF-CARE
== END 2020-05-10 16:30 | disposition home or self-care (01) | DRG 247 ==
LOC: EC 11:37 → 2SICU 12:10 → 3SCARD 05-09 14:13
PROVIDERS: ADMIT Family Medicine; ATTEND Family Medicine
PROC: B2111ZZ Fluoroscopy of Multiple Coronary Arteries using Low Osmolar Contrast (ICD-10-PCS; principal; 2020-05-08 12:02)
PROC: 027034Z Dilation of Coronary Artery, One Artery with Drug-eluting Intraluminal Device, Percutaneous Approach (ICD-10-PCS; principal; 2020-05-08 12:02)
DX: I21.19 ST elevation (STEMI) myocardial infarction involving other coronary artery of inferior wall (principal); E87.1 Hypo-osmolality and hyponatremia; I95.9 Hypotension, unspecified; D75.1 Secondary polycythemia; E78.00 Pure hypercholesterolemia, unspecified; E78.5 Hyperlipidemia, unspecified; E83.52 Hypercalcemia; F17.200 Nicotine dependence, unspecified, uncomplicated; I10 Essential (primary) hypertension; I16.0 Hypertensive urgency; I25.2 Old myocardial infarction; M06.9 Rheumatoid arthritis, unspecified; G47.30 Sleep apnea, unspecified; M19.90 Unspecified osteoarthritis, unspecified site; R73.9 Hyperglycemia, unspecified; D72.829 Elevated white blood cell count, unspecified; Z79.899 Other long term (current) drug therapy; Z98.890 Other specified postprocedural states; Z90.89 Acquired absence of other organs; Z71.6 Tobacco abuse counseling; Z87.898 Personal history of other specified conditions; Z82.49 Family history of ischemic heart disease and other diseases of the circulatory system; Z80.9 Family history of malignant neoplasm, unspecified; Z82.61 Family history of arthritis
CPT/HCPCS: 36415; 71045; 80048; 80053; 80061; 83735; 84484; 85025; 90686; 93005; 93306; 93454; 96374; 96375; 99285

== ENCOUNTER → 2024-09-15 | Outpatient (CLI) | payer BC ==
--- NOTE | 2024-09-15 08:54 | CTL ---
EXAMINATION TYPE: CT Low Dose Lung DATE OF EXAM ORDERED: 09/15/2024 COMPARISON: None. CLINICAL INDICATION: Male, 63 years old with history of Z87.891 former smoker; PHH, Former smoker., L kiko cancer screening, History of Smoking/tobacco use. TECHNIQUE: Low dose computed tomography scan was performed through the chest at 1 mm thick sections a nd reconstructed images in multiple planes at 1 mm and [address] DLP: 87.[address] CTDI: 2.4 mGy Automated exposure control for dose reduction was used. CT DIAGNOSTIC QUALITY: Satisfactory FINDINGS: Nodules: RUL: None. RML: None. RLL: None. RANJITH: None. LLL: None. LUNGS: COPD: Severity: None Fibrosis: Severity: None Lymph nodes: None. Other findings: None. RIGHT PLEURAL SPACE: Effusion: None Calcification: None Thickening: None Pneumothorax: None LEFT PLEURAL SPACE: Effusion: None Calcification: None Thickening: None Pneumothorax: None HEART: Heart Size: Normal Coronary Calcification: Moderate Pericardial Effusion: None OTHER FINDINGS: Upper abdomen: None Bony thorax: None Supraclavicular region: None Other: None IMPRESSION: No suspicious nodules CT LUNG RAD AND CT CHEST RECOMMENDATION: Lung-Rad 1 Negative: Continue annual screening with LDCT in 12 months. S Modifier (other clinically significant findings): None [facility], , 09/15/2024 8:52 AM
== END | disposition home or self-care (01) ==
LOC: RADCTMAIN 08:26
PROVIDERS: ATTEND Family Medicine
DX: Z12.2 Encounter for screening for malignant neoplasm of respiratory organs (principal); Z87.891 Personal history of nicotine dependence
CPT/HCPCS: 71271